=== PATIENT | male | born 1950 | race Caucasian/White ===

== ENCOUNTER 2021-08-06 10:45 | Day surgery (SDC) | payer OTHER, SELFPAY ==
[~2021-08-06] VITALS: Ht 167.6 cm; Wt 62.1 kg
[~2021-08-06 10:45] MED LIST: CEFAZOLIN 1 GM IVPB PREMIX 50 ML IV ONE
[2021-08-06] MEDS ORDERED: METOCLOPRAMIDE HCL 10 MG/2 ML VIAL ONE (13:35)
[2021-08-06] MEDS ORDERED: SEVOFLURANE 15 MIN GAS INH ONE (13:35)
[2021-08-06] MEDS ORDERED: fentaNYL CITRATE/PF 100 MCG/2 ML AMP ONE (13:35)
[2021-08-06] MEDS ORDERED: PHENYLEPHRINE HCL 10 MG/ML VIAL (NEOSYNEPHRINE) ONE (13:35)
[2021-08-06] MEDS ORDERED: ROCURONIUM BROMIDE 10 MG/ML (ZEMURON) ONE (13:35)
[2021-08-06] MEDS ORDERED: LIDOCAINE PF 1%, 20 MG/2 ML AMP ONE (13:35)
[2021-08-06] MEDS ORDERED: SUCCINYLCHOLINE CHLORIDE 20 MG/ML(QUELICIN) ONE (13:35)
[2021-08-06] MEDS ORDERED: LR 1,000 ML IV.SOLN IV ONE (13:35)
[2021-08-06] MEDS ORDERED: CEFAZOLIN 2 GM IVPB PREMIX 50 ML IV ONE (13:35)
[2021-08-06] MEDS ORDERED: ETOMIDATE 20 MG/ 10 ML VIAL (AMIDATE) ONE (13:35)
[2021-08-06] MEDS ORDERED: ONDANSETRON HCL 4 MG/2 ML VIAL ONE (13:35)
[2021-08-06] MEDS ORDERED: GLYCOPYRROLATE 0.2 MG/ML VIAL ONE (13:35)
[2021-08-06] MEDS ORDERED: LR 1,000 ML IV SCH (13:45)
[2021-08-06] MEDS ORDERED: MEPERIDINE HCL/PF 25 MG/ML DISP.SYRIN IVP PRN (13:45)
[2021-08-06] MEDS ORDERED: OXYCODONE/ACETAMINOPHEN 5-325 TABLET PO PRN (13:45)
[2021-08-06] MEDS ORDERED: fentaNYL CITRATE/PF 100 MCG/2 ML AMP IVP PRN (13:45)
[2021-08-06 15:11] VITALS: BP_SYST 135
== END 2021-08-06 15:40 | disposition home or self-care (01) ==
LOC: SDS 10:45 → SMU 10:49 → SDS 15:40
PROVIDERS: ATTEND Surgery
DX: R22.0 Localized swelling, mass and lump, head (principal); D11.9 Benign neoplasm of major salivary gland, unspecified
CPT/HCPCS: 21014; 36415; 82962; 87426; 88307; 88333; 88341; 88342; 88361; J0330; J0690 ×2; J2001; J2370; J2405; J2765; J3010; J3490 ×2; J7120; 88305